=== PATIENT | female | born 1940 | race Caucasian/White ===

== ENCOUNTER → 2017-08-15 | Outpatient (CLI) | payer MEDICARE, OTHER ==
[~2017-08-15] MED LIST: AMLO5TAB2 PO
--- NOTE | 2017-08-15 12:48 | DIREP ---
PROCEDURE:CHEST 2 VIEWS COMPARISON:[facility], [place], CHEST 2 VIEW, 12/03/2012, 02:11 PM. [facility], [place], XRAY CHEST 2 VWS, 07/15/2015, 10:58 AM. INDICATIONS:R05 COUGH FINDINGS: LUNGS/PLEURA:No significant pulmonary parenchymal abnormalities. No effusions. VASCULATURE:Normal. Unremarkable pulmonary vasculature. CARDIAC:Normal. No cardiac silhouette abnormality or cardiomegaly. MEDIASTINUM:Normal. No visible mass or adenopathy. BONES:Mild degenerative change of the thoracic spine OTHER:Negative. CONCLUSION:No acute disease. No significant change has occurred. Dictated by: Reilly Navarro MD on 08/15/2017 at 12:46 PM
== END | disposition home or self-care (01) ==
LOC: RAD 11:44
PROVIDERS: ATTEND Nurse Practitioner Family
DX: R05 Cough (principal)
CPT/HCPCS: 71046

== ENCOUNTER → 2019-03-09 | Outpatient (CLI) | payer MEDICARE, OTHER ==
[~2019-03-09] MED LIST changes: +AMLO5TAB10 PO; -AMLO5TAB2 PO
--- NOTE | 2019-03-09 12:03 | DIREP ---
PROCEDURE:CT MAXILLOFACIAL W/O CONTRAST COMPARISON:None. INDICATIONS:J32.9 CHRONCI RHINOSINUSITIS, Z98.890 HISTORY OF SINUS SURGERY TECHNIQUE:Axial images were obtained through the facial bones with coronal reconstructions from source images. FINDINGS: GLOBES:Normal. EXTRAOCULAR MUSCLES:Normal. OPTIC NERVES:Normal. LACRIMAL GLANDS:Normal. MAXILLARY SINUSES:Postsurgical changes medial darby of both maxillary sinuses. Small air-fluid levels in both maxillary sinuses with mild mucoperiosteal thickening. ETHMOID SINUSES:Postsurgical changes inferior darby of both maxillary sinuses, right greater than left. Xoqm-[id number] bilateral mucoperiosteal thickening, left greater than right. SPHENOID SINUSES:Mild mucoperiosteal thickening. FRONTAL SINUSES:Complete opacification of the left frontal sinus. Right frontal sinuses clear. OSTIOMEATAL COMPLEXES:Postsurgical changes but patent. NASAL SEPTUM:Normal. OTHER:Resection of the middle turbinates bilaterally. CONCLUSION: 1. Nrit-zo-bmbcgeaj chronic sinusitis involving the ethmoid, maxillary, and sphenoid sinuses. Postsurgical changes in the maxillary sinuses and ethmoid air cells. 2. Complete opacification of the left frontal sinus consistent with chronic left frontal sinusitis. 3. Minimal air-fluid levels in bilateral maxillary sinuses could signify superimposed acute sinusitis. Dictated by: Jovani Gurrola MD on 03/09/2019 at 11:51 AM
== END | disposition home or self-care (01) ==
LOC: RAD 10:03
PROVIDERS: ATTEND Otolaryngology
DX: J32.2 Chronic ethmoidal sinusitis (principal); J32.0 Chronic maxillary sinusitis; J32.3 Chronic sphenoidal sinusitis; Z98.890 Other specified postprocedural states
CPT/HCPCS: 70486

== ENCOUNTER → 2019-09-14 | Outpatient (CLI) | payer MEDICARE, OTHER | END | disposition home or self-care (01) | LOC: NPLAB 10:44 | PROVIDERS: ATTEND Nurse Practitioner Family | DX: Z03.818 Encounter for observation for suspected exposure to other biological agents ruled out (principal) | CPT/HCPCS: U0003-CS ==

== ENCOUNTER → 2020-03-29 | Outpatient (CLI) | payer MEDICARE, OTHER ==
[~2020-03-29] MED LIST changes: +AMLO-169 PO; -AMLO5TAB10 PO; +LEXISCAN IV ONE
--- NOTE | 2020-03-29 14:21 | STRESS ---
DATE OF SERVICE: 03/29/2020 INDICATION: Chest pain. Baseline EKG shows normal sinus rhythm with poor R-wave progression, cannot exclude an old anterior septal infarct. Stress EKG shows normal sinus rhythm, unchanged from baseline. At recovery, EKG shows normal sinus rhythm, unchanged from baseline. Baseline blood pressure is 131/77 and remained the same during stress. At recovery, the blood pressure was 120/67. Baseline heart rate was 72 beats per minute and harman to 94 beats per minute during stress. At the end of recovery, the heart rate was 90 beats per minute. Blood pressure and heart rate were appropriate for stress. There were no significant symptoms noted during stress. There were no arrhythmias noted during stress. EKG portion of stress test is negative for myocardial ischemia. Nuclear images was obtained with a resting dose of 11.38 mCi technetium 99 sestamibi and a stress dose of 34.2 mCi technetium 99 sestamibi. Nuclear images reveal homogeneous tracer distribution across all wall segments with no evidence of myocardial ischemia or infarction. Left ventricular ejection fraction of 64%. EDV is 20 mL, ESV 7 mL. The left ventricle is normal in size. Gated motion images shows normal wall motion across all segments of the left ventricle. TID is 0.87. There is no evidence of diaphragmatic attenuation artifact. IMPRESSION: 1. Normal myocardial perfusion imaging with no evidence of myocardial ischemia or infarction. 2. Left ventricular ejection fraction of 64%. 3. This is a negative study. MELINDA RIOS D.O. DR: LIZABETH/paty JOB# [id number]
--- NOTE | 2020-03-29 19:15 | PRP ---
DATE OF PROCEDURE: 03/29/2020 ARTERIAL DOPPLER ULTRASOUND OF BILATRAL LOWER EXTREMITIES INDICATION: Intermittent claudication. RIGHT LOWER EXTREMITY: The right common femoral artery has a peak systolic velocity of 164.8 cm/sec with biphasic waveforms. The right profunda femoris artery has a peak systolic velocity of 57.2 cm/sec with monophasic waveforms. The right superficial femoral artery has biphasic waveforms seen throughout with a peak systolic velocity of 137.8 cm/sec. The right popliteal artery has biphasic waveforms seen throughout with a peak systolic velocity of 80.1 cm/sec. The right posterior tibial artery has biphasic waveforms seen throughout with a peak systolic velocity of 77.6 cm/sec. The right anterior tibial artery has biphasic waveforms seen throughout with a peak systolic velocity of 90 cm/sec. The right lower extremity ankle-brachial index is 1.0. LEFT LOWER EXTREMITY: The left common femoral artery has a peak systolic velocity of 168.7 cm/sec with biphasic waveforms visualized. The left profunda femoris artery has a peak systolic velocity of 71.3 cm/sec with monophasic waveforms. The left SFA has a peak systolic velocity of 129.9 cm/sec with biphasic waveforms seen throughout. The left popliteal artery has a peak systolic velocity of 91.8 cm/sec with biphasic waveforms seen throughout. The left posterior tibial artery has biphasic waveforms seen throughout with a peak systolic velocity of 67.7 cm/sec. The left anterior tibial artery has biphasic waveforms seen throughout with a peak systolic velocity of 89.2 cm/sec. The left lower extremity ankle-brachial index is 1.0. IMPRESSION: 1. There is no evidence of hemodynamically significant stenosis in the right lower extremity. 2. There is no evidence of hemodynamically significant stenosis in the left lower extremity. 3. Bilateral ABIs are within normal limits. MELINDA RIOS D.O. DR: LIZABETH/paty JOB# [id number]
--- NOTE | 2020-03-29 21:04 | PCM.ECHO ---
APPROVED REPORT EXAM: Comprehensive 2D, Doppler, and color-flow Echocardiogram. Patient Location: OUT-PATIENT Indications Dizziness and Vertigo 2D Dimensions LVOT Diameter 2.00 (1.8-2.4cm) LVEF(%) 62.03 (>50%) M-Mode Dimensions RVDd 0.90 (2.1-3.2cm) Left Atrium(MM) 2.95 (2.5-4.0cm) IVSd 0.75 (0.7-1.1cm) Aortic Root 2.45 (2.2-3.7cm) LVDd 4.00 (4.0-5.6cm) Aortic Cusp Exc 1.45 (1.5-2.0cm) PWd 0.55 (0.7-1.1cm) MV EPSS 0.36 (<0.5cm) IVSs 1.10 cm FS (%) 37.00 % LVDs 2.50 (2.0-3.8cm) ESV(Teich) 22.96 ml PWs 1.05 cm LVEF(%) 67.51 (>50%) Volumes Biplane 2D LV Volumes Biplane 2D LA Volumes LVEDv A4C 79.19 mL LA ESV Index LVESv A4C 30.07 mL Aortic Valve AoV Peak Maurice. 0.80 m/s AoV VTI 18.30 cm AO Peak GR. 2.80 mmHg AO Mean GR. 1.35 mmHg LVOT VTI 23.23 cm LVOT Peak Maurice. 0.90 m/s SHIRA(VTI)/BSA 3.96 cm2/m2 SHIRA (VTI) 3.96 cm2 AI P 1/2 Time 658.80 ms Mitral Valve MV E Velocity 0.65m/s MR Peak Gr. 30.85mmHg MV A Velocity 0.85m/s TDI Lateral E' P. V 0.08m/s Medial E' P. V 0.13m/s Pulmonary Valve PV Peak Velocity 0.70m/s PV Peak Grad. 2.20mmHg RVOT VTI 16.92cm Tricuspid Valve TR P. Velocity 2.45m/s RAP ESTIMATE 10.00mmHg TR Peak Gr. 24.77mmHg RVSP 34.77mmHg LEFT VENTRICLE The left ventricle is normal size. The left ventricular systolic function is normal. The left ventricular ejection fraction is within the normal range. There is normal left ventricular wall thickness. There is normal LV segmental wall motion. There is no ventricular septal defect visualized. No left ventricle thrombus noted on this study. LVEF is 65%. RIGHT VENTRICLE The right ventricle is normal size. The right ventricular systolic function is normal. There is normal right ventricular wall thickness. ATRIA The left atrium size is normal. The right atrium size is normal. The interatrial septum is intact with no evidence for an atrial septal defect. AORTIC VALVE The aortic valve is normal in structure. There is no aortic valvular stenosis. Mild to moderate aortic regurgitation. There is no aortic valvular vegetation. MITRAL VALVE The mitral valve is normal in structure. There is no mitral valve stenosis. Mild mitral regurgitation. There is no evidence of mitral valve vegetations. TRICUSPID VALVE The tricuspid valve is normal in structure. There is no tricuspid valve stenosis. Severe tricuspid regurgitation. There is no tricuspid valve vegetations. PULMONIC VALVE Pulmonic valve is not well visualized. There is no pulmonic valvular stenosis. Mild pulmonic regurgitation. GREAT VESSELS The aortic root is normal in size. Pulmonary artery is not well visualized. Aortic arch is not well visualized. The IVC is normal in size and collapses >50% with inspiration. PERICARDIUM There is no pericardial effusion. There is no pleural effusion. Other Information Study Quality: Fair <Conclusion> The left ventricular systolic function is normal. LVEF is 65%. Mild to moderate aortic regurgitation. Mild mitral regurgitation. Severe tricuspid regurgitation. Mild pulmonic regurgitation. Electronically signed by : MELINDA RIOS. 03/29/2020 21:04:40
== END | disposition home or self-care (01) ==
LOC: RAD 09:01
PROVIDERS: ATTEND Internal Medicine Interventional Cardiology
DX: I08.3 Combined rheumatic disorders of mitral, aortic and tricuspid valves (principal); I25.2 Old myocardial infarction; I70.213 Atherosclerosis of native arteries of extremities with intermittent claudication, bilateral legs; R42 Dizziness and giddiness; I87.2 Venous insufficiency (chronic) (peripheral); Q25.49 Other congenital malformations of aorta; R07.9 Chest pain, unspecified
CPT/HCPCS: 78452; 93017; 93306; 93922; 93925; A9500; J2785

== ENCOUNTER → 2020-03-31 | Outpatient (CLI) | payer MEDICARE, OTHER ==
[~2020-03-31] MED LIST changes: -LEXISCAN IV ONE
--- NOTE | 2020-03-31 21:03 | PRP ---
DATE OF PROCEDURE: 03/31/2020 VENOUS MAPPING ULTRASOUND INDICATION: Chronic venous insufficiency. RIGHT LOWER EXTREMITY: The right greater saphenous vein measures 6 mm in its maximum diameter. Significant reflux is noted in the right GSV with maximum reflux of 7.1 seconds. The right small saphenous vein measures 5 mm in its maximum diameter. Significant reflux is noted in the right small saphenous vein with maximum reflux of 2.6 seconds. There is no evidence of deep venous thrombosis in the right lower extremity. LEFT LOWER EXTREMITY: The left greater saphenous vein measures 4 mm in its maximum diameter. Significant reflux is noted in the left GSV with maximum reflux of 5 seconds. The left small saphenous vein measures 4 mm in its maximum diameter. Significant reflux is also noted in the left small saphenous vein with maximum reflux of 0.7 seconds. There is no evidence of deep venous thrombosis in the left lower extremity. IMPRESSION: 1. The right greater saphenous vein is normal sized but displays pathological reflux. 2. The right small saphenous vein is dilated and displays pathological reflux. 3. The left greater saphenous vein is normal sized but displays pathological reflux. 4. The left small saphenous vein is normal sized but displays pathological reflux. 5. There is no evidence of deep venous thrombosis in the bilateral lower extremities. RECOMMENDATION: The use of compression stockings, leg elevation and exercise as conservative measures of therapy are recommended if clinically indicated. MELINDA RIOS D.O. DR: LIZABETH/paty JOB# [id number]
== END | disposition home or self-care (01) ==
LOC: RAD 11:20
PROVIDERS: ATTEND Internal Medicine Interventional Cardiology
DX: I70.213 Atherosclerosis of native arteries of extremities with intermittent claudication, bilateral legs (principal); I87.2 Venous insufficiency (chronic) (peripheral); R42 Dizziness and giddiness
CPT/HCPCS: 93970

== ENCOUNTER → 2020-11-24 | Outpatient (CLI) | payer MEDICARE, OTHER ==
--- NOTE | 2020-11-26 06:52 | PRP ---
DATE OF PROCEDURE: 11/24/2020 DICTATOR NAME: MELINDA RIOS DO POST VENOUS ABLATION DOPPLER ULTRASOUND INDICATION: Status post radiofrequency ablation of the right greater saphenous vein. FINDINGS: There is no evidence of deep venous thrombosis in the right lower extremity. The right greater saphenous vein is noncompressible. Hyperechoic material is visualized in the right greater saphenous vein. There is no evidence of venous flow in the right greater saphenous vein. IMPRESSION: 1. Successful radiofrequency ablation of the right greater saphenous vein. 2. There is no evidence of deep venous thrombosis in the right lower extremity. Josiane MENDOZA D.O. DR: DONY TID: [id number] RECEIPT: [id number]
== END | disposition home or self-care (01) ==
LOC: RAD 10:00
PROVIDERS: ATTEND Internal Medicine Interventional Cardiology
DX: I87.2 Venous insufficiency (chronic) (peripheral) (principal)
CPT/HCPCS: 93971

== ENCOUNTER → 2020-12-01 | Outpatient (CLI) | payer MEDICARE, OTHER ==
--- NOTE | 2020-12-02 02:57 | PRP ---
DATE OF PROCEDURE: 12/01/2020 DICTATOR NAME: MELINDA RIOS DO POST VENOUS ABLATION DOPPLER ULTRASOUND INDICATION: Status post radiofrequency ablation of the left small saphenous vein. FINDINGS: There is no evidence of deep venous thrombosis in the left lower extremity. The left small saphenous vein is noncompressible. Hyperechoic material is visualized in the left small saphenous vein. There is no evidence of venous flow in the left small saphenous vein. IMPRESSION: 1. Successful radiofrequency ablation of the left small saphenous vein. 2. There is no evidence of deep venous thrombosis in the left lower extremity. Josiane MENDOZA D.O. DR: GLENIS TID: [id number] RECEIPT: [id number]
== END | disposition home or self-care (01) ==
LOC: RAD 11:11
PROVIDERS: ATTEND Internal Medicine Interventional Cardiology
DX: I87.2 Venous insufficiency (chronic) (peripheral) (principal)
CPT/HCPCS: 93971

== ENCOUNTER → 2020-12-08 | Outpatient (CLI) | payer MEDICARE, OTHER ==
--- NOTE | 2020-12-10 01:24 | PRP ---
DATE OF PROCEDURE: 12/08/2020 DICTATOR NAME: MELINDA RIOS DO POST VENOUS ABLATION DOPPLER ULTRASOUND INDICATION: Status post radiofrequency ablation of the left greater saphenous vein. FINDINGS: There is no evidence of deep venous thrombosis in the left lower extremity. The left greater saphenous vein is noncompressible. Hyperechoic material is visualized in the left greater saphenous vein. There is no evidence of venous flow in the left greater saphenous vein. IMPRESSION: 1. Successful radiofrequency ablation of the left greater saphenous vein. 2. There is no evidence of deep venous thrombosis in the left lower extremity. Josiane MENDOZA D.O. DR: LACI TID: [id number] RECEIPT: [id number]
== END | disposition home or self-care (01) ==
LOC: RAD 12:48
PROVIDERS: ATTEND Internal Medicine Interventional Cardiology
DX: I87.2 Venous insufficiency (chronic) (peripheral) (principal)
CPT/HCPCS: 93971

== ENCOUNTER → 2021-01-27 | Outpatient (CLI) | payer MEDICARE, OTHER | END | disposition home or self-care (01) | LOC: NPLAB 10:28 | PROVIDERS: ATTEND Nurse Practitioner Family | DX: Z20.822 Contact with and (suspected) exposure to COVID-19 (principal) | CPT/HCPCS: 87426 ==